=== PATIENT | female | born 1985 | race Caucasian/White ===

== ENCOUNTER → 2019-06-19 10:33 | Outpatient (CLI) | payer OTHER, SELFPAY ==
--- NOTE | 2019-06-19 10:36 | DI.US.S_ITS ---
PROCEDURE: US PELVIC COMPLETE INDICATIONS: SEVERE PELVIC PAIN, R/O TORSION TECHNIQUE: Real-time scanning was performed of the pelvic organs, with image documentation. Additional endovaginal scanning was necessary due to incomplete visualization of the adnexal and endometrial structures by transabdominal scanning. COMPARISON: [facility], [place], PELVIC COMPLETE, 03/25/2015, 16:51. FINDINGS: Transabdominal scanning: Limited scanning through the kidneys shows no hydronephrosis. No pathologic free abdominal or pelvic fluid. Endovaginal scanning: Uterus: Uterus is normal in size at 8.1 x 3.0 x 5.1 cm. The endometrium measures 10 mm in combined thickness. Ovaries: Neither ovary was visualized sonographically, although the patient declined further scanning due to discomfort. IMPRESSION: Neither ovary sonographically visualized, therefore not evaluated. No gross adnexal cyst or mass seen. Technically, ovarian torsion however cannot be excluded. If further characterization is clinically required, pelvic MRI could be performed, versus laparoscopic evaluation. Dictated by: James Garcia M.D. on 06/19/2019 at 13:22 Approved by: James Garcia M.D. on 06/19/2019 at 13:24
== END ==
PROVIDERS: PCP Internal Medicine; Referring Provider Obstetrics & Gynecology; Visit Provider Obstetrics & Gynecology
DX: R10.2 Pelvic and perineal pain (principal); Z87.42 Personal history of other diseases of the female genital tract
CPT/HCPCS: 76830; 76856

== ENCOUNTER → 2020-10-23 14:05 | Outpatient (CLI) | payer OTHER, SELFPAY ==
--- NOTE | 2020-10-23 | DI.CT.S_ITS ---
PROCEDURE: CT CHEST W CON INDICATIONS: Other nonspecific abnormal finding of lung field TECHNIQUE: After the administration of intravenous contrast, 5 mm thick sections acquired from the pulmonary apices to the posterior costophrenic angles. 1 mm axial lung, 5 mm thick coronal and sagittal reformats and 7 mm axial MIP were acquired. For radiation dose reduction, the following was used: automated exposure control, adjustment of mA and/or kV according to patient size. COMPARISON: [facility], CT, CT ABD PELVIS W CON, 03/04/2015, 14:14. [facility], RG, CT ABDOMEN/PELVIS WITH CONTRAST, 06/07/2020, 1:22. FINDINGS: Image quality: Excellent. Lungs and pleura: A few small pulmonary nodules are redemonstrated. These include nodules in the left lower lobe measuring 4 mm on series 3, image 212, 4 mm on image 204, 4 mm on image 199, and 4 mm on image 187. Within the left lingula, there is a 3-4 mm nodule on image 183. These appear stable in size compared to the prior studies given differences in technique. In the right lower lobe, there is a 4 mm nodule on series 3, image 193. This also appears stable in size compared to the prior studies given differences in technique. There is a small 3 mm nodules in the right middle lobe on series 3, image 129 which was not included on the prior studies. A small 3 mm left upper lobe nodule on image 84 with also not included on the prior studies. No pleural effusions or pneumothorax. Central and peripheral airways are patent and normal in caliber. Mediastinum: Heart size is normal. No pericardial effusion. No mediastinal or hilar adenopathy by size criteria. Thoracic aorta and central pulmonary arteries are normal in size. Esophagus is normal in caliber. No hiatal hernia. Bones and chest wall: No suspicious bony lesions. No vertebral body compression fractures. No axillary or supraclavicular adenopathy by size criteria. The visualized thyroid demonstrates no discrete nodules. Abdomen: Visualized upper abdominal solid organs appear normal. Upper abdominal bowel loops are normal in caliber. IMPRESSION: 1. Stable small nodules in the lung bases compared to the prior studies dating back to 2014 consistent with a benign process. 2. Small right middle and left upper lobe 3 mm nodules were not included on the prior abdominal CTs but are also likely benign. Dictated by: Kushal Bey M.D. on 10/23/2020 at 15:03 Approved by: Kushal Bey M.D. on 10/23/2020 at 15:12
== END ==
PROVIDERS: PCP Internal Medicine; Referring Provider Internal Medicine; Visit Provider Internal Medicine
DX: R91.8 Other nonspecific abnormal finding of lung field (principal); R59.1 Generalized enlarged lymph nodes
CPT/HCPCS: 71260; Q9967